=== PATIENT | male | born 1945 | race Caucasian/White ===

== ENCOUNTER → 2020-04-12 | Outpatient (CLI) | payer MEDICARE ==
[~2020-04-12] MED LIST: ALLO300T PO; AMLO10TA8 PO; ASCO-96 PO; ASPI-496 PO; CLOP75TA PO; DIAZ10TA4 PO; HYDROCHLOROTH12.5 MG PO; LISI40TA PO; LOVA10TA PO; MELO15TA24 PO; METF10002 PO; METR55GE TP; PIOG45TA63 PO; POTA99TA2 PO; UBID100C41 PO; VITA400C43 PO; ZINC50TA3 PO
== END | disposition home or self-care (01) ==
LOC: STAR 12:53
PROVIDERS: ATTEND Surgery Vascular Surgery
DX: Z01.818 Encounter for other preprocedural examination (principal); Z11.59 Encounter for screening for other viral diseases
CPT/HCPCS: 93005; U0001

== ENCOUNTER 2020-04-16 08:22 | Day surgery (SDC) | payer MEDICARE ==
[~2020-04-16] VITALS: Ht 172.7 cm; Wt 76.0 kg
[2020-04-16 08:53] VITALS: BP 123/79
[2020-04-16] MEDS ORDERED: CHLORHEXIDINE 15 ML UDC MM STA (09:00)
[2020-04-16] MEDS ORDERED: CHLORHEXIDINE 15 ML UDC ONE (09:03)
[2020-04-16] MEDS ORDERED: LACTATED RINGERS 1,000 ML IV SCH (09:23)
[2020-04-16] MEDS ORDERED: FENTANYL PF 250 MCG/5ML ONE (09:43)
[2020-04-16] MEDS ORDERED: hydrALAzine 20 MG/ML, 1ML IV PRN (10:00)
[2020-04-16] MEDS ORDERED: HALOPERIDOL 5 MG/ML IV PRN (10:00)
[2020-04-16] MEDS ORDERED: HYDROmorphone 1 MG/ML, 1ML INJ IVPush PRN (10:00)
[2020-04-16] MEDS ORDERED: MEPERIDINE/PF 25MG/0.5ML IVPush PRN (10:00)
[2020-04-16] MEDS ORDERED: FENTANYL PF 100 MCG/2ML IV PRN (10:00)
[2020-04-16] MEDS ORDERED: PROMETHAZINE 25 MG/ML, 1ML IVPush PRN (10:00)
[2020-04-16] MEDS ORDERED: OXYcodone 5 MG/5 ML ORAL.SOL UDC PO PRN (10:00)
[2020-04-16] MEDS ORDERED: LABETALOL 5MG/ML, 20ML IV PRN (10:00)
[2020-04-16] MEDS ORDERED: BUPIVACAINE/PF-EPI 0.5% 1:200K ONE (10:02)
[2020-04-16] MEDS ORDERED: DEXAMETHASONE 4 MG/ML, 1ML ONE ×2 (10:24→10:52)
[2020-04-16] MEDS ORDERED: ROCURONIUM 10MG/ML,5ML ONE (10:52)
[2020-04-16] MEDS ORDERED: ONDANSETRON 2MG/ML, 2ML ONE (10:52)
[2020-04-16] MEDS ORDERED: GLYCOPYRROLATE 0.2MG/1ML, 5ML ONE (10:52)
[2020-04-16] MEDS ORDERED: NEOSTIGMINE 1 MG/ML, 10ML ONE (10:52)
[2020-04-16] MEDS ORDERED: CEFAZOLIN 1,000 MG ONE (10:52)
[2020-04-16] MEDS ORDERED: PROPOFOL 10 MG/ML, 20ML ONE (10:52)
[2020-04-16] MEDS ORDERED: SUCCINYLCHOLINE 20 MG/ML, 10ML ONE (10:52)
== END 2020-04-16 13:30 | disposition home or self-care (01) ==
LOC: OUT 08:22
PROVIDERS: ATTEND Surgery Vascular Surgery
DX: K80.20 Calculus of gallbladder without cholecystitis without obstruction (principal); I10 Essential (primary) hypertension; E11.9 Type 2 diabetes mellitus without complications; I25.10 Atherosclerotic heart disease of native coronary artery without angina pectoris; I25.2 Old myocardial infarction; E78.00 Pure hypercholesterolemia, unspecified; M10.00 Idiopathic gout, unspecified site; Z79.82 Long term (current) use of aspirin; Z79.84 Long term (current) use of oral hypoglycemic drugs; Z79.1 Long term (current) use of non-steroidal anti-inflammatories (NSAID); Z79.02 Long term (current) use of antithrombotics/antiplatelets; Z79.899 Other long term (current) drug therapy; Z87.891 Personal history of nicotine dependence; Z86.73 Personal history of transient ischemic attack (TIA), and cerebral infarction without residual deficits; Z88.0 Allergy status to penicillin; Z95.1 Presence of aortocoronary bypass graft; Z85.828 Personal history of other malignant neoplasm of skin; Z98.890 Other specified postprocedural states; Z80.0 Family history of malignant neoplasm of digestive organs; Z82.49 Family history of ischemic heart disease and other diseases of the circulatory system; Z84.1 Family history of disorders of kidney and ureter
CPT/HCPCS: 47562; 82962; 88304; J0330; J0690; J1100; J2405; J2704; J2710; J3010; J7120